=== PATIENT | female | born 1975 ===

== ENCOUNTER 2018-07-15 09:44 | Emergency (ER) | payer OTHER ==
[2018-07-15 10:55] VITALS: BP 134/88
[2018-07-15] MEDS ORDERED: Ketorolac INJ* 60 MG/2 ML VIAL IM ONE (11:04)
--- NOTE | 2018-07-15 11:39 | RAD ---
INDICATION: Right knee trauma COMPARISON: None TECHNIQUE: 4 view radiograph of the right knee. FINDINGS: The visualized bones are well-corticated and properly aligned. Degenerative changes of the right knee include narrowing of the lateral compartment with mild sclerotic change of the tibial plateaus. On the sunrise view there is lateral subluxation of the patella relative to the intercondylar groove. There is mild sclerotic change in the particular surface of the patella. There is a small suprapatellar joint effusion. There is no acute fracture, dislocation or other focal bony abnormality. IMPRESSION: 1. Degenerative changes and small suprapatellar joint effusion as described above. 2. The patella appears to be dislocated laterally on the sunrise view which may similar be a consequence of positioning prior to image acquisition. Please correlate to physical exam signs of patellar tracking syndrome. If the patient's symptoms persist, follow-up imaging is recommended.
[2018-07-15] MEDS ORDERED: HYDROcodone/ACETAMIN 5-325 MG* 1 TAB PO ONE (12:02)
--- NOTE | 2018-07-15 12:08 | UC ---
Knee Pain HPI - HPI Summary HPI Summary: 43-year-old woman comes in today with a chief complaint of right knee pain after injury. She was at work and she tripped and fell and struck her right knee on the floor. She had immediate severe pain in the anterior knee. There is no skin break. She was unable to ambulate. She came directly here to clinic. Pain is severe. She took some ibuprofen which she vomited because the pain was so bad. She was given a Toradol shot here in clinic and that improved her pain some. Pain with any kind of motion or palpation. - History of Current Complaint Chief Complaint: UCLowerExtremity Stated Complaint: R LEG INJURY Time Seen by Provider: 07/15/18 11:47 Hx Last Menstrual Period: 06/30/18 Pain Intensity: 10 - Allergies/Home Medications Allergies/Adverse Reactions: Allergies Allergy/AdvReac Type Severity Reaction Status Date / Time No Known Allergies Allergy Verified 07/15/18 10:54 Home Medications: Home Medications Ibuprofen 600 mg PO 07/15/18 [History] PMH/Surg Hx/FS Hx/Imm Hx - Additional Past Medical History Additional PMH: Left knee surgery - Surgical History Surgical History: Yes Surgery Procedure, Year, and Place: lt knee replaced - Family History Known Family History: Positive: None - Social History Alcohol Use: Rare Substance Use Type: None Smoking Status (MU): Never Smoked Tobacco Review of Systems Constitutional: Negative Skin: Bruising - See history present illness Eyes: Negative ENT: Negative Respiratory: Negative Cardiovascular: Negative Gastrointestinal: Negative Motor: Decreased ROM - See history present illness Neurovascular: Negative Musculoskeletal: Other: - See history present illness Neurological: Negative Psychological: Negative Is Patient Immunocompromised?: No All Other Systems Reviewed And Are Negative: Yes Physical Exam Triage Information Reviewed: Yes Appearance: Well-Appearing, Well-Nourished, Pain Distress - MILD AT REST, MODERATE TO SEVERE WITH MOVEMENT/PALPATION. Vital Signs: Initial Vital Signs Temp 98.4 F 07/15/18 10:50 Pulse 94 07/15/18 10:50 Resp 18 07/15/18 10:50 BP 134/88 07/15/18 10:50 Pulse Ox 100 07/15/18 10:50 Vital Signs Reviewed: Yes Eye Exam: Normal Eyes: Positive: Conjunctiva Clear ENT Exam: Normal Neck exam: Normal Neck: Positive: Supple Respiratory: Positive: No respiratory distress Musculoskeletal: Positive: Other: - Right knee is very tender to palpation over the patella and anterior aspect. The patella is not displaced laterally. It does feel to be riding a little bit high. Due to the extreme tenderness to exam him unable to determine if the patellotibial tendon is intact. When the patient raises her right leg the patient is able to keep her niece today but she is not able to fully extend IT. Neurological Exam: Normal Neurological: Positive: Alert Psychological Exam: Normal Psychological: Positive: Age Appropriate Behavior Skin: Positive: Other - No laceration over the right knee Knee Pain Course/Dx - Course Course Of Treatment: Order Information: KNEE RIGHT 4+ VWS. Accession Number: [id number]. CPT: 08763. INDICATION: Right knee trauma. COMPARISON: None. TECHNIQUE: 4 view radiograph of the right knee. FINDINGS: The visualized bones are well-corticated and properly aligned. Degenerative changes of the. right knee include narrowing of the lateral compartment with mild sclerotic change of the. tibial plateaus. On the sunrise view there is lateral subluxation of the patella relative. to the intercondylar groove. There is mild sclerotic change in the particular surface of. the patella. There is a small suprapatellar joint effusion. There is no acute fracture,. dislocation or other focal bony abnormality. IMPRESSION: 1. Degenerative changes and small suprapatellar joint effusion as described above. 2. The patella appears to be dislocated laterally on the sunrise view which may similar be. a consequence of positioning prior to image acquisition. Please correlate to physical exam. signs of patellar tracking syndrome. If the patient's symptoms persist, follow-up imaging is recommended. . <Electronically signed by Fan Iniguez MD in OV> 11/01 [id number]. I discussed the x-ray report with patient. Unable to do her harm and the extent of the patellotibial tendon injury secondary to the extreme pain at the patient has on exam. We will put her in a knee immobilizer and we are able to arrange an orthopedic follow-up with her today at 2:[address] Dimas at [facility] orthopedics. The patient was unable to tolerate the discomfort of the knee immobilizer for we are not going to use a knee immobilizer. She will be going directly from clinic here to orthopedics today. - Differential Dx/Diagnosis Provider Diagnoses: RIGHT KNEE PAIN Discharge - Sign-Out/Discharge Documenting (check all that apply): Patient Departure All imaging exams completed and their final reports reviewed: Yes - Discharge Plan Condition: Stable Disposition: HOME Prescriptions: HYDROcodone/ACETAMIN 5-325 MG* [[place] 5-325 TAB*] 1 tab PO Q4H PRN #30 tab MDD 6 PRN Reason: Pain Patient Education Materials: Swollen Knee Joint (ED) Referrals: Bhupinder Dimas MD [Medical Doctor] - Additional Instructions: FOLLOW UP WITH ORTHOPEDICS, DR DIMAS, TODAY AT 2:45PM. GET RECHECKED FOR ANY WORSENING OF YOUR CONDITION OR QUESTIONS OR CONCERNS. - Billing Disposition and Condition Condition: STABLE Disposition: Home
== END 2018-07-15 12:20 | disposition home or self-care (01) ==
LOC: UCEAST 09:44
DX: M25.561 Pain in right knee (principal); M25.461 Effusion, right knee; M17.11 Unilateral primary osteoarthritis, right knee; Z96.652 Presence of left artificial knee joint
CPT/HCPCS: 99202; G0463; J1885